=== PATIENT | female | born 1990 | race Caucasian/White ===

== ENCOUNTER 2019-07-22 11:18 | Emergency (ER) | payer OTHER, SELFPAY ==
[2019-07-22 11:29] VITALS: BP 119/65; PULSE 77; RESP 18; TEMP 36.9; O2SAT 100
--- NOTE | 2019-07-22 12:02 | ED.GENADULT ---
HPI - General Adult General Chief complaint: Upper Respiratory Infection Stated complaint: exposed to flu Time Seen by Provider: 07/22/19 12:02 Source: patient and RN notes reviewed Mode of arrival: ambulatory Limitations: no limitations History of Present Illness HPI narrative: This is a 28 years old female presented office for evaluation of possible influenza.Symptoms began last night with a little sore throat, runny nose, cough, and feeling achy. She was exposed to influenza. She is 13 weeks . She did receive influenza vaccine for this season. No treatment prior to arrival. Related Data Home Medications Medication Instructions Recorded Confirmed 07/22/19 Allergies Allergy/AdvReac Type Severity Reaction Status Date / Time No Known Allergies Allergy Mild Unverified 11/12/08 02:14 Review of Systems Review of Systems: Narrative: CONSTITUTIONAL: Reports fever ENT: Denies otalgia. CARDIOVASCULAR: Denies chest pain RESPIRATORY: Denies cough GASTROINTESTINAL: Denies abdominal pain, nausea, vomiting, diarrhea. GENITOURINARY: Denies urinary symptoms SKIN: Denies rash MUSCULOSKELETAL: Denies acute back pain, joint pain, or myalgia. NEUROLOGIC: Denies numbness, or focal weakness. PMFSH Comments At time of signature, I agree with nursing past medical, surgical, social and family history. There is no relevant family history pertinent to the presenting complaint. Exam Narrative: Exam Narrative: GENERAL: This is a well-nourished, well-developed patient, in no apparent distress. EYES: Sclera clear/white. Vision is grossly intact. EARS: External ears normal, auditory canals clear and without drainage, TMs normal without perforation. Hearing grossly intact. NOSE: External nose normal with no obvious nasal discharge, nares without redness, no rhinorrhea. THROAT: Mucous membranes moist, posterior pharynx clear. NECK: Neck supple, non-tender without lymphadenopathy, masses or thyromegaly. CARDIOVASCULAR: Regular rate and rhythm without murmurs, gallops, or rubs. RESPIRATORY: Clear to auscultation. Breath sounds equal bilaterally. No wheezes, rales, or rhonchi. GASTROINTESTINAL: Abdomen soft, non-tender, nondistended. Bowel sounds are active. No hepato-splenomegaly, or palpable masses. No guarding. SKIN: warm, intact with no suspicious lesions or rash, good texture and turgor. NEURO: awake, alert, and oriented to person, place and time. There were no obvious focal neurologic abnormalities. Steady gait Abby Coma Scale Eye Opening: Spontaneous 4 [place] Coma Scale Motor: Obeys Commands 6 Abby Coma Scale Verbal: Oriented 5 Course Vital Signs Vital signs: Vital Signs Temperature 98.5 F 07/22/19 11:29 Pulse Rate 77 07/22/19 11:29 Respiratory Rate 18 07/22/19 11:29 Blood Pressure 119/65 07/22/19 11:29 Pulse Oximetry 100 07/22/19 11:29 Temperature 98.5 F 07/22/19 11:29 Pulse Rate 77 07/22/19 11:29 Respiratory Rate 18 07/22/19 11:29 Blood Pressure 119/65 07/22/19 11:29 Pulse Oximetry 100 07/22/19 11:29 Medical Decision Making MDM Narrative Medical decision making narrative: Discharge instructions reviewed with patient, as well as provided in writing per nursing staff. The instructions also include specific and strict return/GO TO THE ER as well as f/u information. All questions have been answered, and the patient deny any further questions with discharge and discharge plan. Differential Diagnosis Differential Diagnosis: pneumonia, Allergic Rhinitis, Upper respiratory cough syndrome, Pharyngitis, Sinusitis, Bronchitis, otitis media, viral URI, Asthma/reactive airway disease, influenza Medical Records Medical records reviewed: Yes I reviewed the patient's medical records. Vital Signs Vital Signs: Vital Signs Temperature 98.5 F 07/22/19 11:29 Pulse Rate 77 07/22/19 11:29 Respiratory Rate 18 07/22/19 11:29 Blood Pressure 119/65 07/22/19 11:29
== END 2019-07-22 12:13 | disposition home or self-care (01) ==
PROVIDERS: Emergency Provider Nurse Practitioner
DX: O99.511 Diseases of the respiratory system complicating pregnancy, first trimester (principal); Z3A.13 13 weeks gestation of pregnancy; J06.9 Acute upper respiratory infection, unspecified
CPT/HCPCS: 87804; 99212; G0463

== ENCOUNTER 2019-10-31 07:20 | Outpatient (RCR) | payer OTHER, SELFPAY ==
[2019-10-31 08:56] LABS: Hemoglobin 11.6 g/dL (12.0-15.0)
[2019-10-31 09:13] LABS: Glucose 1 Hour PP 50gm Dose 159 mg/dL
[2019-10-31 09:52] LABS: HIV 1/2 Ab P24 Ag Result Negative (Negative)
[2019-10-31] MEDS: RHO(D) IMMUNE GLOBULIN 300 MCG SYRINGE IM (12:50)
[2019-11-02 07:40] LABS: Rapid Plasma Reagin Non-Reactive (NonReactive)
== END 2020-01-29 23:59 | disposition home or self-care (01) ==
LOC: ANHLAB 07:20
PROVIDERS: Visit Provider Obstetrics & Gynecology
DX: Z29.13 Encounter for prophylactic Rho(D) immune globulin (principal); Z11.4 Encounter for screening for human immunodeficiency virus [HIV]; O36.0130 Maternal care for anti-D [Rh] antibodies, third trimester, not applicable or unspecified; Z3A.00 Weeks of gestation of pregnancy not specified
CPT/HCPCS: 36415; 82947; 85014; 85018; 85461; 86592; 86703; 90384; 96372; G0432; J2790

== ENCOUNTER 2020-02-03 10:51 | Inpatient (IN) | payer OTHER, SELFPAY ==
[2020-02-03] VITALS (98 sets, daily range): BP systolic 85–138; BP diastolic 50–115; PULSE 78–137; RESP 14–20; TEMP 36.1–37; O2SAT 92–100; BMI 28.7
--- NOTE | 2020-02-03 11:28 | WPDOBADMIT ---
Obstetrics - Admit Note Admission Note: record reviewed. No pertinent additions to the history and/or any subsequent changes in the physical findings that are not consistent with the expected course of the were found. Pt arrived to with contractions, SVE 4-5/80/-2, RN notified late decelerations and CNM at bs, AROM moderate amount of clear odorless fluid, IUPC placed and Dr. Garcia notified Additions to the history and/or subsequent changes in the physical findings follow. None.
--- NOTE | 2020-02-03 11:29 | P.HP_ITS ---
H&P: HPI History of Present Illness Date/Time: 02/03/20 11:29 Chief complaint: Labor Narrative: Lashawn Knight is a 29 year old female [facility] Family History Family History (Updated 12/26/19 @ 13:50 by Taylor Dumas, RN) Grandparent Diabetes mellitus Mother Pancreatic cancer Social History Social History Substance use: never Gender identity (if verbalized by the patient): Female Spiritual care concerns: No Meds Home Medications and Allergies Home Medications Medication Instructions Recorded Confirmed Type PNV cmb#95-ferrous fumarate-FA 1 tablet PO DAILY 12/26/19 12/26/19 History [] Allergies Allergy/AdvReac Type Severity Reaction Status Date / Time No Known Allergies Allergy Mild Unverified 11/12/08 02:14 Assessment and Plan Assessment and plan (1) Post-dates : Code(s): O48.0 - Post-term Status: Acute
[2020-02-03 11:42] LABS: Basophils Absolute Auto 0.1 K/mm3 (0.0-0.1); Basophils Percent Auto 0.5 % (0.2-1.2); Eosinophils Percent Auto 0.2 % (0-4.4); Hematocrit 35.1 % (37.0-47.0); Hemoglobin 11.6 g/dL (12.0-15.0); Immature Granulocyte Absolute 0.06 K/mm3 (0.00-0.031); Immature Granulocyte Percent A 0.5 % (0-0.5); Lymphocytes Absolute Auto 1.09 K/mm3 (0.9-3.2); Lymphocytes Percent Auto 9.9 % (18.3-44.2); Mean Corpuscular Hemoglobin 28.3 pg (26-34); Mean Corpuscular Volume 85.6 fl (80-100); Mean Platelet Volume 10.2 fl (7.4-10.4); Monocytes Absolute Auto 1.1 K/mm3 (0.1-0.6); Monocytes Percent Auto 9.7 % (2.6-8.5); Neutrophils Absolute Auto 8.7 K/mm3 (1.3-6.7); Neutrophils Percent Auto 79.2 % (45.5-73.1); Platelet Count Result 318 k/mm3 (150-375); Red Cell Distribution Width 13.4 % (11.5-14.5)
[2020-02-03] MEDS: LACTATED RINGERS 1,000 ML 125 ML IV CONT ×3 (11:45→15:55)
--- NOTE | 2020-02-03 11:50 | LDADM ---
This patient, Lashawn Knight, was admitted to Labor/Delivery/Recovery 103 on 02/03/20 at 10:51. Plans for labor, pain management and were discussed with patient. Patient/family oriented to hospital policies and general routines including ID bracelet, bed and alarms, visiting hours, pain management, procedures, bathroom and other care routines, personal items, smoking policy, room service/diet and guest tray routines, infant security routines, call light, and visiting hours. Patient/Family are encouraged to report perceived risks to care and to ask questions if they do not understand what they are told or what they should do. See OBIX for further documentation.
--- NOTE | 2020-02-03 14:19 | WPDANESEPP ---
Anes - Eval Pre Procedure Procedure: labor epidural Date/Time: 02/03/20 14:19 Surgeon: Akira Garcia Preop Diagnosis: pain during labor Pre Op Diagnosis: Labor Patient Data Age: 29 Gender: F Height: 5 ft 1 in Weight: 69 kg Last Vital Signs Temp 36.1 C L 02/03/20 12:32 Pulse 84 02/03/20 14:01 BP 115/72 02/03/20 14:01 Allergies Allergy/AdvReac Type Severity Reaction Status Date / Time No Known Allergies Allergy Mild Verified 02/03/20 11:38 Home Medications Medication Instructions Recorded Confirmed Type PNV cmb#95-ferrous fumarate-FA 1 tablet PO DAILY 12/26/19 02/03/20 History [] docusate sodium [Colace] 100 mg PO DAILY 02/03/20 02/03/20 History Laboratory Tests 02/03/20 02/03/20 02/03/20 11:36 11:36 11:36 WBC 11.0 K/mm3 H K/mm3 (4.5-10.0) RBC 4.10 M/mm3 L M/mm3 (4.2-5.4) Hgb 11.6 g/dL L g/dL (12.0-15.0) Hct 35.1 % L % (37.0-47.0) MCV 85.6 fl fl (80-100) MCH 28.3 pg pg (26-34) MCHC 33.0 g/dl g/dl (32-36) RDW 13.4 % % (11.5-14.5) Plt Count 318 k/mm3 k/mm3 (150-375) MPV 10.2 fl fl (7.4-10.4) Immature Gran % (Auto) 0.5 % % (0-0.5) Neut % (Auto) 79.2 % H % (45.5-73.1) Lymph % (Auto) 9.9 % L % (18.3-44.2) [place] % (Auto) 9.7 % H % (2.6-8.5) Eos % (Auto) 0.2 % % (0-4.4) Baso % (Auto) 0.5 % % (0.2-1.2) Lymph # (Auto) 1.09 K/mm3 K/mm3 (0.9-3.2) [place] # (Auto) 1.1 K/mm3 H K/mm3 (0.1-0.6) Eos # (Auto) 0.0 K/mm3 K/mm3 (0-0.3) Baso # (Auto) 0.1 K/mm3 K/mm3 (0.0-0.1) Abs Immat Gran (auto) 0.06 K/mm3 H K/mm3 (0.00-0.031) Absolute Neuts (auto) 8.7 K/mm3 H K/mm3 (1.3-6.7) Absolute Nucleated RBC 0.0 K/mm3 K/mm3 (0.0-0.012) Nucleated RBC % 0.0 % % (0.0-0.2) RPR Pending Blood Type O Negative Antibody Screen Negative Patient hx anesthesia problems: none Family hx anesthesia problems: none [facility] Family History Family History Grandparent Diabetes mellitus Mother Pancreatic cancer Social History Social History Years smoked: 2.5 Smoking status: Former smoker Substance use: never Gender identity (if verbalized by the patient): Female Spiritual care concerns: No Exam Day of Procedure 02/03/20 14:19 Patient weight: normal Heart: regular rate and rhythm Lungs: clear to auscultation and normal air movement Airway: Mallampati scale class II Neurological: alert and oriented
[2020-02-03] MEDS: SODIUM CHLORIDE 0.9% IV 300 ML 600 ML I-UTERINE (15:33)
[2020-02-03] MEDS: ceFAZolin 2 GM/D5W 50 ML 2 GM/50 ML BAG IVPB (15:58)
--- NOTE | 2020-02-03 16:31 | P.OP_ITS ---
Procedure Note - Detailed Date of procedure: 02/03/20 Pre-op diagnosis: Labor Non-reassuring Heart Tones Post-op diagnosis: same (Malposition of the Head) Procedure performed: low-transverse delivery Description of procedure: The patient was taken the operating room. She was prepped and draped in the dorsal supine position with leftward tilt after induction of spinal anesthetic. When anesthesia was found to be adequate a low- transverse skin incision was made and carried down to the level the fascia with the knife. The fascial incision was made at the midline with a scalpel. The fascial incision was extended laterally with Zelaya scissors. The fascia was tented upward superior and inferior with Marla clamps. The rectus muscles were dissected off bluntly. The rectus muscles at the midline. The preperitoneal fat was dissected bluntly at the superior aspect of the separate the rectus muscles. The peritoneal cavity was entered bluntly in the same area. The peritoneal incision was extended superior and inferior with good visualization of bladder. Bladder blade was inserted. A low-transverse incision was made on the uterus with the scalpel. It was carried down the level of the amniotic cavity with a knife. The amniotic cavity bluntly. The uterine incision was made laterally with blunt traction. The infant was delivered. The cord was clamped and cut. The infant was handed off to waiting pediatric staff. Cord bloods were obtained. The placenta was removed manually. The uterus was exteriorized. Uterus cleared of all clots and debris. Uterus closed in 0 Vicryl in a running locked fashion. An imbricating layer of 0 Vicryl was also placed on the to bolster the closure. The uterus was returned to the abdomen. The gutters were cleared of all clots and debris. The fascia was closed 0 Vicryl in a running fashion. Subcutaneous tissue was irrigated and bleeding areas were cauterized. The skin was closed with subcuticular absorbable garcia. The incision was covered with derma fernández. The patient tolerated the procedure well. She was taken recovery room stable condition. Sponge, lap, needle counts were correct x2. Anesthesia: spinal Surgeon: Akira Garcia MD Estimated blood loss (mL): 540 Drains: No Packing: No Pathology: none sent Complications: No immediate complications Condition: stable Disposition: floor Findings: Normal maternal anatomy. Average size infant with normal Apgars. Head in the LOP position.
[2020-02-03] MEDS: OXYTOCIN 30 UNITS/NS 500 ML 30 UNITS/500 ML BAG 125 UNITS IV CONT (18:24)
[2020-02-03] MEDS: KETOROLAC 30 MG/ML VIAL (*BKC) IV PUSH (21:31)
[2020-02-03] MEDS: DEXTROSE 5%/0.45% SOD CHL 1,000 ML 125 ML IV CONT (22:30)
[2020-02-04 03:45] VITALS: BP 112/72; PULSE 93; RESP 15; TEMP 37; O2SAT 98
[2020-02-04 05:04] LABS: Basophils Absolute Auto 0.1 K/mm3 (0.0-0.1); Basophils Percent Auto 0.5 % (0.2-1.2); Eosinophils Percent Auto 0.1 % (0-4.4); Hematocrit 29.6 % (37.0-47.0); Hemoglobin 9.6 g/dL (12.0-15.0); Immature Granulocyte Absolute 0.11 K/mm3 (0.00-0.031); Immature Granulocyte Percent A 0.7 % (0-0.5); Lymphocytes Absolute Auto 1.07 K/mm3 (0.9-3.2); Lymphocytes Percent Auto 6.8 % (18.3-44.2); Mean Corpuscular HGB Conc 32.4 g/dl (32-36); Mean Corpuscular Volume 86.3 fl (80-100); Mean Platelet Volume 10.4 fl (7.4-10.4); Monocytes Absolute Auto 1.4 K/mm3 (0.1-0.6); Monocytes Percent Auto 8.8 % (2.6-8.5); Neutrophils Absolute Auto 13.2 K/mm3 (1.3-6.7); Neutrophils Percent Auto 83.1 % (45.5-73.1); Platelet Count Result 249 k/mm3 (150-375); Red Blood Count 3.43 M/mm3 (4.2-5.4); Red Cell Distribution Width 13.5 % (11.5-14.5); White Blood Count 15.8 K/mm3 (4.5-10.0)
[2020-02-04] MEDS: KETOROLAC 30 MG/ML VIAL (*BKC) IV PUSH (05:05)
[2020-02-04 07:28] LABS: Rapid Plasma Reagin Non-Reactive (NonReactive)
--- NOTE | 2020-02-04 07:54 | PM.OBPNVD ---
OB - PN: Subj Subjective Date/time seen: 02/04/20 07:54 Patient comments: no complaints, pain well controlled, tolerating diet and flatus present OB - PN: Obj Data Labs CBC & Chem 7: 02/04/20 03:57 Labs: Laboratory Results - last 24 hr 02/03/20 02/03/20 02/03/20 11:36 11:36 11:36 WBC 11.0 H RBC 4.10 L Hgb 11.6 L Hct 35.1 L MCV 85.6 MCH 28.3 MCHC 33.0 RDW 13.4 Plt Count 318 MPV 10.2 Immature Gran % (Auto) 0.5 Neut % (Auto) 79.2 H Lymph % (Auto) 9.9 L [place] % (Auto) 9.7 H Eos % (Auto) 0.2 Baso % (Auto) 0.5 Lymph # (Auto) 1.09 [place] # (Auto) 1.1 H Eos # (Auto) 0.0 Baso # (Auto) 0.1 Abs Immat Gran (auto) 0.06 H Absolute Neuts (auto) 8.7 H Absolute Nucleated RBC 0.0 Nucleated RBC % 0.0 RPR Non-reactive Blood Type O Negative Antibody Screen Negative 02/04/20 03:57 WBC 15.8 H RBC 3.43 L Hgb 9.6 L Hct 29.6 L MCV 86.3 MCH 28.0 MCHC 32.4 RDW 13.5 Plt Count 249 MPV 10.4 Immature Gran % (Auto) 0.7 H Neut % (Auto) 83.1 H Lymph % (Auto) 6.8 L [place] % (Auto) 8.8 H Eos % (Auto) 0.1 Baso % (Auto) 0.5 Lymph # (Auto) 1.07 [place] # (Auto) 1.4 H Eos # (Auto) 0.0 Baso # (Auto) 0.1 Abs Immat Gran (auto) 0.11 H Absolute Neuts (auto) 13.2 H Absolute Nucleated RBC 0.0 Nucleated RBC % 0.0 RPR Blood Type Antibody Screen OB - PN A/P Plan day: 1 Comments: Post Op LTCS - no problems, routine recovery Time Spent With Patient Time: Total time spent is greater than 50% in coordination of care (as documented) at patient's floor/unit and/or counseling patient: Exam Const: General: cooperative, healthy appearing, comfortable and no acute distress Resp: Auscultation: no crackles, no rales, no rhonchi and no wheezes Cardio: Rhythm: regular rhythm Heart sounds: no click and no murmurs GI: Inspection: non-distended Auscultation: normal bowel sounds Extrem: General: normal to inspection, no pedal edema and no calf tenderness
[2020-02-04 08:00] VITALS: BP 99/63; PULSE 94; RESP 18; TEMP 36.6
[2020-02-04] MEDS: SIMETHICONE 80 MG TAB.CHEW PO ×2 (08:20→16:55)
[2020-02-04] MEDS: POLYSACCHARIDE IRON COMPLEX 150 MG CAPSULE PO ×2 (08:20→16:54)
[2020-02-04] MEDS: MULTIVIT/MIN/PREN/FOL AC/IRON TABLET 1 TAB PO (08:20)
[2020-02-04] MEDS: DOCUSATE SODIUM 100 MG CAPSULE PO ×2 (08:21→16:54)
--- NOTE | 2020-02-04 10:28 | WPDANLDPN2 ---
Anes-Prog Note L&D Date/Time: 02/04/20 10:28 Comfortable throughout: section Neuraxial method: epidural Epidural/Spinal procedure site: clean & non-tender Neuro status: Neuro function grossly intact. Cardiovascular status: normal Respiratory status: normal Airway patency: baseline Mental status: baseline Post-Op hydration status: normal Vital Signs: Last Vital Signs Temp 36.6 C 02/04/20 08:00 Pulse 94 02/04/20 08:00 Resp 18 02/04/20 08:00 BP 99/63 L 02/04/20 08:00 Pulse Ox 98 02/04/20 03:45 I/O: Intake & Output 02/03/20 02/04/20 02/04/20 23:59 07:59 15:59 Intake Total 550 840 Output Total 0049 825 800 Balance -1249 -825 40 Post-procedural complaints: pruritis mild, no treatment Patient feedback: Patient satisfied with anesthetic care.
--- NOTE | 2020-02-04 10:28 | WPDANLDNPN2 ---
Anes-Prog Note L&D-Neuraxial Date/Time: 02/04/20 10:28 Neuraxial medications: epidural PF morphine Opiod-related complaints: pruritis mild, no treatment Patient feedback: Patient satisfied with post-operative pain management.
[2020-02-04 12:00] VITALS: BP 100/70; PULSE 88; RESP 20; TEMP 36.9; O2SAT 100
[2020-02-04 12:30] VITALS: BP 126/77; PULSE 95; RESP 18; TEMP 37; O2SAT 99
--- NOTE | 2020-02-04 12:40 | PC.NURSE ---
Consulted with patient, mother reports she has some tenderness with feedings and needs assist with positioning to latch. Reviewed feeding cues, frequencies, duration of feedings, feeding elimination flow sheet, and signs of adequate intake. Demonstrated stimulation techniques to wake infant for feeding. Assisted with infant to breast. Reviewed positioning/alignment in cross cradle, holding breast in U hold and guided asymmetrical latch on. Discussed rational for each. After several attempts, infant was able to latch correctly. Infant does not want to open widely for deep latch. Once on breast infant nursed eagerly with steady draws and frequent swallowing, for short burst followed with long pausing. Advised to stimulate to keep infant awake and nursing effectively for increased intake and assist with maintaining deep latch. noted. Demonstrated how to adjust latch more deeply while feeding. Reviewed signs of a correct latch, effective nursing and suck swallow ratio. was able to maintain latch without discomfort to mother. Nipple care reviewed. Instructed mother to call out for RN assistance if she is unable to latch infant for feeding or she has discomfort with nursing. Instructed feeding should be initiated three hours from start of last feeding or if feeding cues are noted before. Mother voiced understanding of information shared.
[2020-02-04] MEDS: IBUPROFEN 600 MG TABLET PO ×2 (13:07→21:30)
[2020-02-04 15:14] VITALS: BP 100/60; PULSE 90; RESP 18; TEMP 36.8; O2SAT 100
[2020-02-04 20:20] VITALS: BP 105/68; PULSE 92; RESP 16; TEMP 36.7
[2020-02-05] MEDS: IBUPROFEN 600 MG TABLET PO ×3 (03:50→19:57)
--- NOTE | 2020-02-05 07:30 | PC.NURSE ---
Mother called out with questions concerning infant fussiness and . Mother reports she is when feeding cues are noted for 15+ minutes, will eagerly feed for 5 minutes then fall asleep. When she puts in crib, he begins to fuss and cry with rooting noted. Advised to stimulate the entire feeding to keep awake and nursing for more than 5 minutes. Parents question if supplementation is needed. Advised infant is WNL for weight, output, jaundice and feeding as required, at this time supplementation is not needed would be a want and is parents choice. Reviewed transition of milk supply at day 3-4.
[2020-02-05] MEDS: POLYSACCHARIDE IRON COMPLEX 150 MG CAPSULE PO ×2 (07:40→16:42)
[2020-02-05] MEDS: MULTIVIT/MIN/PREN/FOL AC/IRON TABLET 1 TAB PO (07:40)
[2020-02-05] MEDS: SIMETHICONE 80 MG TAB.CHEW PO ×2 (07:40→16:42)
[2020-02-05] MEDS: DOCUSATE SODIUM 100 MG CAPSULE PO ×2 (07:40→16:42)
--- NOTE | 2020-02-05 07:47 | PM.OBPNVD ---
OB - PN: Subj Subjective Date/time seen: 02/05/20 07:47 Patient comments: no complaints, pain well controlled, incisional pain, tolerating diet and flatus present OB - PN: Obj Data Labs CBC & Chem 7: 02/04/20 03:57 OB - PN A/P Plan day: 2 Plan: routine care Comments: POD#2 LTCS - no problems, Time Spent With Patient Time: Total time spent is greater than 50% in coordination of care (as documented) at patient's floor/unit and/or counseling patient: Exam Const: General: comfortable, no acute distress and alert Resp: Effort & Inspection: normal respiratory effort Auscultation: no crackles, no rales and no rhonchi Cardio: Rate: regular rate Heart sounds: no click, no murmurs and no rubs GI: Inspection: non-distended GI Palp: No Tenderness to palpation present (GI) Auscultation: normal bowel sounds Other: Incision - CDI Extrem: General: normal to inspection, no pedal edema and no calf tenderness
[2020-02-05 08:00] VITALS: BP 113/69; PULSE 78; RESP 18; TEMP 36.6; O2SAT 100
--- NOTE | 2020-02-05 08:25 | PM.OBPNVD ---
OB - PN: Subj Subjective Date/time seen: 02/05/20 08:25 Patient comments: no complaints, pain well controlled and tolerating diet OB - PN: Obj Data Labs CBC & Chem 7: 02/04/20 03:57 OB - PN A/P Plan day: 1 Plan: routine care and discharge home Time Spent With Patient Time: Total time spent is greater than 50% in coordination of care (as documented) at patient's floor/unit and/or counseling patient: Exam Const: General: comfortable and no acute distress Resp: Effort & Inspection: normal respiratory effort Auscultation: no rales, no rhonchi and no wheezes Cardio: Rate: regular rate Heart sounds: no click, no murmurs and no rubs GI: GI Palp: Yes Soft to palpation and No Tenderness to palpation present (GI) Auscultation: normal bowel sounds Extrem: General: normal to inspection, no pedal edema and no calf tenderness
--- NOTE | 2020-02-05 13:30 | PC.NURSE ---
Mother called for assist with feeding. Mother has tenderness bilat. and small reddened areas to both nipples from possible shallow latch. Assisted with to breast. Reviewed positioning/alignment in cross cradle, holding breast in U hold and guided asymmetrical latch on. Discussed rational for each. was able to latch correctly. nursed eagerly, with steady draws and frequent swallowing noted. Reviewed signs of a correct latch, effective nursing and suck swallow ratio. Infant would pull back during feeding to shallow latch. Demonstrated how to adjust latch while feeding. Advised to stimulate while feeding to keep awake and nursing effectively and to assist with maintaining deep latch. Mother was able to independently correct latch and report less tenderness. Nipple care reviewed. Mother is feeding as required and waking infant to feed if needed. Infant is currently meeting outcomes for weight, output, jaundice and feeding frequencies. Mother states she feels confident to continue effective at home. Reviewed transition to breast milk, signs of adequate intake, and engorgement/relief. Instructed to call ICP if intake/output less than required. Reviewed regular medications mother is taking. Information provided per Lalitha. Reviewed community resources on the [facility] website and in the Mom/Baby guide. Information on outpatient services provided. Mother has no further questions at this time.
[2020-02-05 19:00] VITALS: BP 108/68; PULSE 95; RESP 16; TEMP 36.7
[2020-02-06] MEDS: IBUPROFEN 600 MG TABLET PO ×2 (03:10→09:01)
--- NOTE | 2020-02-06 07:23 | PM.OBPNVD ---
OB - PN: Subj Subjective Date/time seen: 02/06/20 07:23 Patient comments: no complaints baby status: doing well and nursing well [place] feeding status: exclusively breast feeding OB - PN: Obj Data Labs CBC & Chem 7: 02/04/20 03:57 OB - PN A/P Plan day: 3 Plan: discharge home Time Spent With Patient Time: Total time spent is greater than 50% in coordination of care (as documented) at patient's floor/unit and/or counseling patient: Exam Const: General: comfortable Resp: Effort & Inspection: normal respiratory effort Psych: Appearance: grossly normal Affect: normal affect Attitude: cooperative Judgement: Good judgement present (Psych)
[2020-02-06 08:30] VITALS: BP 122/77; PULSE 99; RESP 16; TEMP 36.7; O2SAT 99
[2020-02-06] MEDS: DOCUSATE SODIUM 100 MG CAPSULE PO (08:59)
[2020-02-06] MEDS: POLYSACCHARIDE IRON COMPLEX 150 MG CAPSULE PO (09:00)
[2020-02-06] MEDS: MULTIVIT/MIN/PREN/FOL AC/IRON TABLET 1 TAB PO (09:01)
--- NOTE | 2020-02-06 12:21 | PC.NURSE ---
Patient viewed the discharge video Mother & Baby Care, The First Two Weeks . Patient was given the opportunity and encouraged to ask questions. Patient verbalized understanding of information shared and has been given the mother/baby guide for home reference.
[2020-02-08 10:08] VITALS: BP 113/80; PULSE 88; RESP 16; TEMP 37.1; O2SAT 98
--- NOTE | 2020-02-14 20:36 | PM.OBDSVD ---
DS: Admitting Diagnosis Admitting Diagnosis Admitting Diagnosis: Labor DS: Discharge Diagnosis Discharge Diagnosis (1) delivery delivered: Code(s): O82 - Encounter for delivery without indication Status: Acute OB - DS: Summary OB Procedures : None OB Procedures Intrapartum: OB Procedures: : None Peripartum Data Delivery Method: Section Procedures: Procedures Operation Date: 02/03/20 15:50 Actual Procedures Side Surgeon p Section Akira Garcia MD Status at Discharge Functional status at discharge: independent ambulation Time Spent with Patient Time attestation: Total time spent providing and/or coordinating discharge services: DS: Data Data Completed and Pending Completed studies during hospitalization: Pending at discharge 02/03/20 17:00 Surgical [PTH] Routine Discharge Plan Discharge Attending physician on discharge: Akira Garcia Consulting providers: Barbra Matos Discharging Clinician: Barbra Matos Patient Disposition: Home, Self-Care Activity: pelvic rest Diet: regular Discharge Instructions: Education: Mom and Baby Guide Given to: Mother Follow-Up: Call your delivering provider's office for an appointment to be seen in: 1 Week Mom and baby should come to the [facility] for the follow-up appointment. Appointment Date/Time: Saturday, February 08, 2020 at 10:00 a.m. What to expect at your follow-up visit: Blood Pressure Check Physical Assessment Call [phone] if you are unable to keep your appointment time. BREAST CARE: * Wear a snug supportive bra. * For engorgement discomfort: Breast Feeding: * Apply warm moist washcloths * Express milk as needed to relieve engorgement * Wear loose clothing * For sore nipples: * Identify correct latch-on * Apply warm moist washcloths before and after nursing * Air dry nipples after nursing * May apply Lansinoh cream to nipples ABDOMINAL INCISION: (if applicable) * Allow incision to air dry * Do NOT use lotions for powders on your incision * When showering, allow soap and water to run over the incision, but do not wash incision EPISIOTOMY/PERINEAL CARE: * Change your pad frequently throughout the day * You may take sitz baths several times a day (fill your bathtub with warm water and soak for 20 minutes.) Do NOT bathe in the water * No tub baths until seen by your physician - You may shower ACTIVITY: * Rest as much as possible. * Do not exercise or lift anything heavier than your baby (such as laundry or other children.) * Avoid stairs or driving as much as possible. * Do not put anything into the vagina. No douching, tampons, or sexual activity until seen by physician. NOTIFY PHYSICIAN IF YOU HAVE ANY QUESTIONS OR IF ANY OF THE FOLLOWING SYMPTOMS OCCUR: * If your incision becomes red, swollen, or more painful than what you have experienced in the hospital. * If your vaginal bleeding becomes foul smelling. * If your vaginal bleeding becomes more heavy than a period or if your bleeding changes from pink to bright red. However, you may pass an occasional walnut-sized clot once or twice for the first week . * If you experience a sharp, shooting pain in you calves. * If you discover a hard, reddened area on your breast or if you experience flu-like symptoms. DIET: * Eat regular, well-balanced meals. * Drink plenty of fluids daily. If , drink to thirst. Stand Alone Forms: General Discharge Information Follow-up/Referrals: Akira Garcia MD [Physician] - 1 Week (and 4 weeks) Discharge Medications: New hydrocodone-acetaminophen 5-325 mg Tablet 1 tab PO Q3H PRN (Reason: Moderate Pain (4-6)) Qty: 20 RF: 0 Continued PNV cmb#95-ferrous fumarate-FA [] 28 mg iron- 800 mcg Tablet
== END 2020-02-06 15:28 | disposition home or self-care (01) | DRG 788 ==
LOC: ANHLDR 11:21 → ANHOB2 19:06
PROVIDERS: Admitting Provider Obstetrics & Gynecology; Visit Provider Obstetrics & Gynecology
PROC: 10D00Z1 Extraction of Products of Conception, Low, Open Approach (ICD-10-PCS; CPT 59514; principal; 2020-02-03 15:50)
DX: O48.0 Post-term pregnancy (principal); Z37.0 Single live birth; Z3A.41 41 weeks gestation of pregnancy; O36.8330 Maternal care for abnormalities of the fetal heart rate or rhythm, third trimester, not applicable or unspecified; O69.81X0 Labor and delivery complicated by cord around neck, without compression, not applicable or unspecified; O99.73 Diseases of the skin and subcutaneous tissue complicating the puerperium; L29.9 Pruritus, unspecified
CPT/HCPCS: 36415; 85025; 86592; 86850; 86900; 86901; 88307; A9270; J0131; J0690; J1885; J2274; J2590; J2795; J7030; J7120